=== PATIENT | female | born 1995 | race African-American/Black ===

== ENCOUNTER 2024-08-13 10:16 | Outpatient (CLI) | payer MEDICAID, SELFPAY ==
--- NOTE | ~2024-08-13 | US_ITS ---
EXAMINATION: US OB <=14 wk fetus w TV DATE: 08/13/2024 10:54 INDICATION: Evaluate viability TECHNIQUE: Real-time transabdominal and transvaginal obstetric ultrasound. FINDINGS: No prior studies for comparison. The uterus measures 9.3 x 7.8 x 7.8 cm. There is an intrauterine gestational sac, with pole awa ntified. The crown rump length measures 3.67 cm, which correlates with a estimated gestational age o f 10 weeks 4 days. heart tones are identified measuring 145 BPM. The ovaries are within ariane l limits. No evidence for subchorionic hemorrhage. IMPRESSION: 1. SL IUP with an EGA of 10 weeks, 4 days (EDC by current ultrasound of 03/07/2025). Reviewed, dictated and finalized at location B. IMPRESSION: 1. SL IUP with an EGA of 10 weeks, 4 days (EDC by current ultrasound of 03/07/20 25).
== END 2024-08-13 10:17 | disposition home or self-care (01) ==
LOC: MICIMG 10:18
PROVIDERS: PCP Student in an Organized Health Care Education/Training Program; Visit Provider Student in an Organized Health Care Education/Training Program
DX: N94.89 Other specified conditions associated with female genital organs and menstrual cycle (principal); Z3A.10 10 weeks gestation of pregnancy
CPT/HCPCS: 76801; 76817

== ENCOUNTER 2025-02-23 10:39 | Outpatient (RCR) | payer OTHER, SELFPAY ==
[2025-02-20 11:15] VITALS: BP 110/77; PULSE 108
--- NOTE | ~2025-02-23 | US_ITS ---
EXAMINATION: US OB BPP wo non-stress DATE: 02/20/2025 12:04 INDICATION: Small for gestational age during third trimester of TECHNIQUE: Real-time pelvic ultrasound was performed. The interpreting radiologist was not present fo r the study. COMPARISON: None. FINDINGS: There is a single living fetus in vertex presentation. The placenta is posterior fundal. heart rate is 125 beats per minute (bpm). Amniotic fluid volume appears subjectively normal with normal de epest vertical pocket measurement of 4.6 cm Biophysical profile performed by the technologist: breathing (30 sec sustained breathing in 30 minutes): 2 out of 2 movement (3 gross body movements in 30 minutes): 2 out of 2 tone (one episode of wkemkws-[id number]-mavmahp limb movement): 2 out of 2 Amniotic fluid pocket (2 cm): 2 out of 2 Total score: 8 out of 8 IMPRESSION: 1. Single living fetus in vertex presentation with heart rate of 125 bpm. 2. Biophysical profile 8 out of 8. Reviewed, dictated and finalized at location A.
[2025-02-23 11:34] VITALS: BP 118/76; PULSE 109
== END 2025-03-16 08:33 | disposition home or self-care (01) ==
LOC: ANHOBOP 10:39
PROVIDERS: Visit Provider Obstetrics & Gynecology
DX: O36.5990 Maternal care for other known or suspected poor fetal growth, unspecified trimester, not applicable or unspecified (principal); Z3A.37 37 weeks gestation of pregnancy; Z3A.38 38 weeks gestation of pregnancy
CPT/HCPCS: 59025; 76819

== ENCOUNTER 2025-02-26 05:30 | Inpatient (IN) | payer OTHER, SELFPAY ==
[2025-02-26] VITALS (162 sets, daily range): BP systolic 78–141; BP diastolic 34–108; PULSE 81–234; TEMP 36.3–36.9; O2SAT 93–100; BMI 25.8
--- OUTSIDE RECORDS SUMMARY | 2025-02-26 05:35 | XMS_ITS | Referral Summary ---
Author Organization [facility] Address [address] [place] [id number] Care Team Providers Care Millwright Instructor Name Role Phone No, Physician Primary Care Provider [phone] Allergies No known active allergies Medications acetaminophen (TYLENOL) 500 mg tabletIndications:P ain Take 2 tablets (1,000 mg total) by mouth every 6 (six) hours as needed for pain 60 tablet 4 Active ibuprofen (ADVIL,MOTRIN) 600 mg tabletIndications:P ain Take 1 tablet (600 mg total) by mouth every 6 (six) hours as needed for pain 30 tablet 4 Active oxyCODONE (ROXICODONE) 5 mg immediate release tabletIndications:P ain Take 1 tablet (5 mg total) by mouth every 4 (four) hours as needed for pain 10 tablet 4 Active polyethylene glycol (MIRALAX) 17 gram/dose bulk powder Take 17 g by mouth daily 289 g 4 Active ondansetron ODT (ZOFRAN-ODT) 4 mg disintegrating tabletIndications:P revention of Post-Operative Nausea and Vomiting Take 1 tablet (4 mg total) by mouth every 8 (eight) hours as needed for nausea or vomiting 20 tablet 4 Active cyclobenzaprine (FLEXERIL) 5 mg tablet Take 1 tablet (5 mg total) by mouth 3 (three) times a day as needed for muscle spasms 30 tablet 1 4 Active Active Problems Problem Noted Date Diagnosed Date Ectopic 11/30/2023 Social History Tobacco Use Types Packs/Day Years Used Date Smoking Tobacco: Never Smokeless Tobacco: Never Tobacco Cessation:Counseling Given: Not Answered AUDIT-C Answer Date Recorded Q1: How often do you have a drink containing alcohol? Never 11/30/2023 Q2: How many drinks containi ng alcohol do you have on a typical day when you are drinking? Patient does not drink Q3: How often do you have si x or more drinks on one occasion? Never 11/30/2023 Personal Safety Answer Date Recorded Have you ever been in or are you currently in a harmful physical or emotional relationship or is someone making you feel afraid or unsafe? Denies 11/30/2023 Comments No Sex and Gender Information Value Date Recorded Sex Assigned at Not on file Legal Sex Female 9:[address] FREIGHT Gender Identity Not on file Sexual Orientation Not on file Last Filed Vital Signs Vital Sign Reading Time Taken Comments Blood Pressure 100/58 12/13/2023 3:[address] ENGINEER FREIGHT Pulse 74 12/13/2023 3:[address] ENGINEER FREIGHT Temperature 37.1 C (98.7 F) 12/13/2023 3:[address] ENGINEER FREIGHT Respiratory Rate 12 11/30/2023 8:[address] ENGINEER FREIGHT Oxygen Saturation 100% 12/13/2023 3:[address] ENGINEER FREIGHT Inhaled Oxygen Concentration - - Weight 53.5 kg (117 lb 14.4 oz) 12/13/2023 3:[address] ENGINEER FREIGHT Height 144.8 cm (4' 9 ) 12/13/2023 3:[address] ENGINEER FREIGHT Body Mass Index 25.51 12/13/2023 3:[address] ENGINEER FREIGHT Plan of Treatment Not on file Care Teams Millwright Instructor Relationship Specialty Start Date End Date No, Physician PCP - General 11/30/23
--- OUTSIDE RECORDS SUMMARY | 2025-02-26 05:35 | XMS_ITS | Clinical Summary ---
Author Organization [facility] Address [address] [place] [address] Care Team Providers Care Emergency Preparedness Manager Name Role Phone Unavailable Primary Care Provider Unavailabl e Source Comments [facility],non-owned Affiliates and Associated Physician Practices is amultiple site organization consisting of ambulatory clinics and hospital sitesin [place] and [place]. This disclosure is being madepursuant to the Care Everywhere program and may not contain all information available regarding this patient. Last updated 18.[facility] Allergies No known active allergies Medications * Be aware that medications may not be up to date on this document. Alwaysverify current medications with the patient. Vit-DSS-Fe Fum-FA ( vitamin with iron) tabletIndicatio ns: Take 1 (one) tablet by mouth once daily Reasons: Active Encounters Date Type Department Care Team Description 01/12/2025 12:56 PM CDT - 01/12/2025 11:59 PM CDT Hospital Encounter [facility] [address] [place] [address] David Lee MD Discharge Disposition: Home or Self Care 12/17/2024 10:30 AM AMBULANCE MECHANIC - 12/17/2024 11:59 PM AMBULANCE MECHANIC Hospital Encounter [facility] [address] [place] [address] Mariely Caballero MD Discharge Disposition: Home or Self Care 12/01/2024 Telephone [facility] [address] [place] [address] Venita Reagan Adam Appointment (LM for pt to C/S appt) from Last 3 Months Family History Relation Name Status Comments Brother Alive Father Alive Mother Alive Sister Alive Social History Tobacco Use Types Packs/Day Years Used Date Smoking Tobacco: Never Smokeless Tobacco: Never Tobacco Cessation:Counseling Given: Not Answered Alcohol Use Standard Drinks/Week Comments Never 0 (1 standard drink = 0.6 oz pur e alcohol) Estimated Date of Delivery Comme nts Yes 03/08/2025 Based on Patient Reported Sex and Gender Information Value Date Recorded Sex Assigned at Not on file Legal Sex Female 8:51 AM CDT Gender Identity Not on file Sexual Orientation Not on file Last Filed Vital Signs Vital Sign Reading Time Taken Comments Blood Pressure 111/64 08/27/2024 1:49 PM AMBULANCE MECHANIC Pulse 87 08/27/2024 1:49 PM AMBULANCE MECHANIC Temperature - - Respiratory Rate - - Oxygen Saturation - - Inhaled Oxygen Concentration - - Weight 48.5 kg (107 lb) 08/27/2024 1:49 PM AMBULANCE MECHANIC Height 144.8 cm (4' 9 ) 08/27/2024 1:49 PM AMBULANCE MECHANIC Body Mass Index 23.15 08/27/2024 1:49 PM AMBULANCE MECHANIC Plan of Treatment Health Maintenance Due Date Last Done Comments PAP SMEAR 1993 HIV SCREENING 2008 HEPATITIS C SCREENING 07/17/2011 DTAP/TDAP/TD VACCINES (1 - Tdap) 2012 HEPATITIS B VACCINE (1 of 3 - 19+ 3-dose series) 2012 COVID-19 VACCINE (1 - 2023-2 5 season) 2024 DEPRESSION SCREENING 10/22/2024 OB-ONE HOUR GLUCOSE 11/30/2024 OB-TDAP CURRENT 12/07/2024 OB-RHOGAM INJECTION 12/14/2024 OB-GROUP B STREP SCREEN 02/01/2025 INFLUENZA VACCINE (Season Ended) 2025 ZOSTER VACCINE (1 of 2) 2043 HIB VACCINE Aged Out No longer eligi ble based on patient's age to complete this topic HPV VACCINE Aged Out No longer eligi ble based on patient's age to complete this topic MENINGOCOCCAL (Group B) VACC INE SHARED DECISION-MAKING Aged Out No longer eligibl e based on patient's age to complete this topic MENINGOCOCCAL GROUPS A/C/Y/W VACCINE Aged Out No longer eligible b ased on patient's age to complete this topic PNEUMOCOCCAL VACCINE Aged Out No long er eligible based on patient's age to complete this topic Respiratory Syncytial Virus (RSV) Vaccine Pt: or over 60 yrs (No Doses Required) Completed Procedures Procedure Name Priority Date/Time Associated Diagnosis Comments SONOGRAM - COMPLETE Routine 01/12/2025 1 2:53 PM CDT Second History of malaria 32 weeks gestation of Encounter for ultrasound to assess growth SONOGRAM - COMPLETE Routine 12/17/2024 1 0:40 AM AMBULANCE MECHANIC Second Encounter for ultrasound History of malaria 28 weeks gestation of from Last 3 Months Results * SONOGRAM - COMPLETE (01/12/2025 12:53 PM CDT) Only the most recent of2 resultswithin the time period is included. Linked Results Indication ======== Small HC on outside scan Malaria treated in [facility] 2022 G1: Ectopic LT salpingectomy Nov-2023 G2: Current , low-risk cf-DNA History ====== OB History 2. Para 0 [id number] Maternal Assessment Physical Exam Height 145 cm, 4 ft 9 in. Weight 54 kg, 120 lb. Initial weight 49 kg, 107 lb. BMI 25.97 kg/m . Initial BMI 23.15 kg/m . Weight gain 6 kg, 13 lb Method ====== Transabdominal ultrasound. View: Sufficient ========= Mittal . Number of fetuses: 1 Dating ====== Date Details Gest. age BLANQUITA LMP 06/01/2024 32 w + 1 d 03/08/2025 Stated BLANQUITA 32 w + 1 d 03/08/2025 U/S 01/12/2025 based upon AC, BPD, Femur, HC 31 w + 0 d 03/16/2025 Assigned dating based on the LMP, selected on 08/27/2024 32 w + 1 d 03/08/2025 General Evaluation Cardiac activity present. FHR 123 bpm. Presentation: cephalic Placenta: Placental site: posterior Umbilical cord: Insertion site: normal insertion Amniotic fluid: Amount of AF: normal. MVP 4.6 cm. JER 14.8 cm. Q1 4.6 cm, Q2 4.3 cm, Q3 3.6 cm, Q4 2.3 cm Biometry BPD 74.6 mm 29w 6d 2% Hadlock HC 279.4 mm 30w 4d 1% Hadlock AC 282.3 mm 32w 2d 53% Hadlock Femur 60.3 mm 31w 3d 18% Hadlock Humerus 52.9 mm 30w 6d 18% Anastasia HC / AC 0.99 Weight Calculation: EFW 1,803 g 25% Hadlock EFW (lb,oz) 4 lb 0 oz EFW by Hadlock ([id number]) appropriate Growth Overview Exam date GA BPD (mm) HC (mm) AC (mm) FL (mm) HL (mm) EFW (g) 12/17/2024 28w 3d 68.2 12% 240.3 <1% 234.8 25% 51.6 14% 46.7 19% 1088 13% 01/12/2025 32w 1d 74.6 2% 279.4 1% 282.3 53% 60.3 18% 52.9 18% 1803 25% Anatomy The following structures appear normal: Abdomen Stomach. Kidneys. Bladder. Impression ========= Single, live, intrauterine at 32w 1d size is appropriate Amniotic fluid volume: normal No major malformations were seen within the limitations of ultrasound Follow-up ======== Follow up ultrasound in 4 weeks for growth assessment Coding ====== Procedures 41208: US Preg Uterus Follow Up [facility] Hybrid [employer] PACS Anatomical Region Laterality Modality Other 01/12/2025 12:5 3 PM CDT Aiden Bolivar MD [facility] ORDERABLES Edited Result - Final from Last 3 Months Insurance
--- OUTSIDE RECORDS SUMMARY | 2025-02-26 05:35 | XMS_ITS | Clinical Summary ---
Author Organization [facility] Address [address] [place] [id number] Care Team Providers Care Can Maker Name Role Phone No, Physician Primary Care Provider [phone] Allergies No known active allergies Medications acetaminophen [...] on file Legal Sex Female 9:29 AM JAVA SOLUT[employer] ARCHITECT Gender Identity Not on file Sexual Orientation Not on file Obstetrics History Para Term AB IAB SAB Ectopic Multiple Livin g Live Births 1 Date Outcome GA Total Labor Labor/2nd/3rd Weight Sex Type Anes PTL Annie A1 A5 Name Clin Last Filed Vital Signs Vital Sign Reading Time Taken Comments Blood Pressure 100/58 12/13/2023 3:03 PM JAVA SOLUTIONS ARCHITECT Pulse 74 12/13/2023 3:03 PM JAVA SOLUTIONS ARCHITECT Temperature 37.1 C (98.7 F) 12/13/2023 3:03 PM JAVA SOLUTIONS ARCHITECT Respiratory Rate 12 11/30/2023 8:40 PM JAVA SOLUTIONS ARCHITECT Oxygen Saturation 100% 12/13/2023 3:03 PM JAVA SOLUTIONS ARCHITECT Inhaled Oxygen Concentration - - Weight 53.5 kg (117 lb 14.4 oz) 12/13/2023 3:03 PM JAVA SOLUTIONS ARCHITECT Height 144.8 cm (4' 9 ) 12/13/2023 3:03 PM JAVA SOLUTIONS ARCHITECT Body Mass Index 25.51 12/13/2023 3:03 PM JAVA SOLUTIONS ARCHITECT Plan of Treatment Health Maintenance Due Date Last Done Comments Cervical Cancer Screening 1993 Depression Screening 1993 Hepatitis C Screening 1993 DTaP/Tdap/Td Vaccine (1 - Tdap) 2004 Varicella Vaccines (1 of 2 - 13+ 2-dose series) 2006 Hepatitis B Screening 2011 Regular Well Visit/Exam 18-64 2011 Influenza Vaccine (Season Ended) 2025 HPV Vaccines Aged Out No longer eligi ble based on patient's age to complete this topic Pneumococcal vaccine <65 Aged Out No longer eligible based on patient's age to complete this topic Care Teams Can Maker Relationship Specialty Start Date End Date No, Physician PCP - General 11/30/23
[2025-02-26 06:12] LABS: Basophils Percent Auto 0.5 % (0.2-1.2); Eosinophils Absolute Auto 0.1 K/mm3 (0-0.3); Eosinophils Percent Auto 1.2 % (0-4.4); Hematocrit 38.5 % (37.0-47.0); Hemoglobin 12.7 g/dL (12.0-15.0); Immature Granulocyte Absolute 0.13 K/mm3 (0.00-0.031); Immature Granulocyte Percent A 1.5 % (0-0.5); Lymphocytes Percent Auto 31.6 % (18.3-44.2); Mean Corpuscular Hemoglobin 27.2 pg (26-34); Mean Corpuscular Volume 82.4 fl (80-100); Mean Platelet Volume 9.2 fl (7.4-10.4); Monocytes Absolute Auto 0.5 K/mm3 (0.1-0.6); Neutrophils Absolute Auto 5.1 K/mm3 (1.3-6.7); Neutrophils Percent Auto 59.2 % (45.5-73.1); Nucleated Red Blood Cells Perc 0.2 % (0.0-0.2); Platelet Count Result 350 k/mm3 (150-375); Red Blood Count 4.67 M/mm3 (4.2-5.4); White Blood Count 8.5 K/mm3 (4.5-10.0)
--- NOTE | 2025-02-26 06:18 | P.HPUP_ITS ---
History and Physical Update Update Date/Time: 02/26/25 06:18 29-year-old at 38w4d for IUGR History and Physical has been reviewed, including an updated exam of the patient. There are NO changes in the patient's condition. Risks, benefits, and alternatives have been discussed and questions answered. Patient agrees to proceed with procedure. -Malaria- 2022- [facility] recommend retest -h/o ectopic with L salpingectomy (2022) -moved from [place] in 2022 -FOB is sickle cell carrier, mom hgb A/A Admit to L&D Routine admission orders Rh positive GBS negative Continuous EFM Will plan for misoprostol induction of labor
[2025-02-26] MEDS: miSOPROStol 25 MCG TABLET 50 MCG BY MOUTH (06:40)
[2025-02-26 06:51] LABS: Syphilis IgG/IgM Antibody Negative (Negative)
[2025-02-26 07:04] LABS: HIV 1/2 Ab P24 Ag Result Negative (Negative)
[2025-02-26] MEDS: LACTATED RINGERS 1,000 ML 999 ML IV CONT ×2 (11:06→17:58)
[2025-02-26] MEDS: miSOPROStol 25 MCG TABLET VAGINAL (11:09)
[2025-02-26] MEDS: TERBUTALINE SULFATE 1 MG/ML VIAL 0.25 MG SUB-Q ×2 (15:13→20:53)
--- NOTE | 2025-02-26 21:22 | WPDANESEPP ---
Anes - Eval Pre Procedure Procedure: Labor Epidural Date/Time: 02/26/25 21:22 Surgeon: Osmel Preop Diagnosis: Labor Pain Pre Op Diagnosis: IOL Patient Data Age: 29 Gender: F Height: 1.5 m Weight: 58.1 kg Last Vital Signs Temp 36.3 C L 02/26/25 11:00 Pulse 97 02/26/25 21:00 BP 123/76 02/26/25 21:00 Pulse Ox 98 02/26/25 21:19 O2 Del Method Room Air 02/26/25 06:25 Allergies Allergy/AdvReac Type Severity Reaction Status Date / Time No Known Allergies Allergy Verified 02/24/25 09:26 Home Medications ?Medication ?Instructions ?Recorded ?Confirmed ?Type vits no.126-ferrous fum 1 tablet PO DAILY 08/11/24 02/26/25 History 28 mg iron-folic acid 800 mcg tablet (Classic ) metoclopramide HCl 5 mg tablet 5 mg PO DAILY #30 tabs 08/18/24 02/24/25 Rx (Reglan) Laboratory Tests 02/26/25 05:48 WBC 8.5 K/mm3 (4.5-10.0) RBC 4.67 M/mm3 (4.2-5.4) Hgb 12.7 g/dL (12.0-15.0) Hct 38.5 % (37.0-47.0) MCV 82.4 fl (80-100) MCH 27.2 pg (26-34) MCHC 33.0 g/dl (32-36) RDW 15.0 H % (11.5-14.5) Plt Count 350 k/mm3 (150-375) MPV 9.2 fl (7.4-10.4) Immature Gran % (Auto) 1.5 H % (0-0.5) Neut % (Auto) 59.2 % (45.5-73.1) Lymph % (Auto) 31.6 % (18.3-44.2) [place] % (Auto) 6.0 % (2.6-8.5) Eos % (Auto) 1.2 % (0-4.4) Baso % (Auto) 0.5 % (0.2-1.2) Lymph # (Auto) 2.70 K/mm3 (0.9-3.2) [place] # (Auto) 0.5 K/mm3 (0.1-0.6) Eos # (Auto) 0.1 K/mm3 (0-0.3) Baso # (Auto) 0.0 K/mm3 (0.0-0.1) Abs Immat Gran (auto) 0.13 H K/mm3 (0.00-0.031) Absolute Neuts (auto) 5.1 K/mm3 (1.3-6.7) Absolute Nucleated RBC 0.020 H K/mm3 (0.0-0.012) Nucleated RBC % 0.2 % (0.0-0.2) Syphilis IgG/IgM Ab Negative (Negative) HIV 1&2 Ab/P24 Ag 4thGn Negative (Negative) Blood Type O Positive Antibody Screen Negative : gestational age (, BLANQUITA 03/08/25) Patient hx anesthesia problems: none Family hx anesthesia problems: none Results Review: All pre-operative results and documents have been reviewed as part of the pre-operative evaluation. [facility] Past Medical History Medical History Suppression of menses Surgical History Surgical History H/O unilateral salpingectomy Family History Family History Other Patient denies significant medical history Social History Social History Smoking status: Never smoker Second hand tobacco smoke exposure: No Alcohol intake: never Substance use: never Do You Feel Safe in your Home?: Yes Lack of Transportation: No Lack of Food: Never True Current Housing: I Have Housing Concerned About Future Housing: No Difficulty Paying Gas/Electric Bills: No Difficulty Paying for Meds: No Currently Unemployed: No Education: Associate Degree Difficulty w/ Childcare or Family Care: No Living arrangements: with family Occupation/Education: unemployed Gender identity (if verbalized by the patient): Female Sexual Orientation (if Verbalized by the Patient): Straight or Heterosexual Spiritual care concerns: No Exam Day of Procedure 02/26/25 21:22 Patient weight: normal Heart: regular rate and rhythm Lungs: normal air movement Airway: Mallampati scale class II Neurological: alert and oriented
[2025-02-26] MEDS: LACTATED RINGERS 1,000 ML 125 ML IV CONT (23:43)
[2025-02-27] VITALS (294 sets, daily range): BP systolic 61–138; BP diastolic 44–120; PULSE 67–126; RESP 16–21; TEMP 36.3–37.5; O2SAT 80–100
[2025-02-27] MEDS: OXYTOCIN 30 UNITS/NS 500 ML 30 UNITS/500 ML BAG IV CONT (01:45)
--- NOTE | 2025-02-27 06:01 | PM.OBPNLAB ---
Pain Control Date/time seen: 02/27/25 06:01 Pain control: epidural Pelvic Exam Dilation (cm): 1 Effacement (%): 70 station: -3 Amniotic membrane status: Intact Contractions Monitor mode: External Contraction pattern: Regular Status status: Category ll Assessment and Plan Assessment: induction ongoing Comments: Cooks cervical balloon was placed with 40 mL of saline in each balloon.
[2025-02-27] MEDS: LACTATED RINGERS 1,000 ML 125 ML IV CONT ×2 (08:41→14:25)
[2025-02-27] MEDS: TERBUTALINE SULFATE 1 MG/ML VIAL 0.25 MG SUB-Q (16:29)
--- NOTE | 2025-02-27 18:28 | PM.OBPNLAB ---
Pain Control Date/time seen: 02/27/25 18:28 Pain control: epidural Pelvic Exam Dilation (cm): 6 Effacement (%): 80 station: 0 Amniotic membrane status: Ruptured Contractions Monitor mode: External Contraction pattern: Irregular Status status: Category ll Assessment and Plan Plan: Comments: FHTs noted to have recurrent prolonged deceleration. Pitocin was stopped. The fetus is not tolerating Pitocin augmentation or maternal repositioning. heart tones only remaining reassuring on the maternal left side with no Pitocin. Cervix remains 6 cm. Discussed plan of care with patient and father of baby. Recommended for intolerance of labor remote from delivery. Risks, benefits, alternatives reviewed at length. Discussed remote from delivery status and my concerns for tolerance of active phase of labor. Discussed the risk of terminal bradycardia, cerebral palsy, complications with prolonged stress of fetus with ongoing trial of induction of labor.
[2025-02-27] MEDS: ACETAMINOPHEN 500 MG TABLET 1000 MG PO (18:48)
[2025-02-27] MEDS: FAMOTIDINE 20 MG/2 ML VIAL IV PUSH (19:01)
[2025-02-27] MEDS: ONDANSETRON INJ 4 MG/2 ML VIAL IV PUSH (19:01)
--- NOTE | 2025-02-27 19:47 | WPDANESEPP ---
Anes - Eval Pre Procedure Procedure: Operation Date: 02/27/25 18:30 Proposed Procedures p Section - Aiden Bolivar MD Date/Time: 02/27/25 19:47 Surgeon: Osmel Preop Diagnosis: Term IUP in labor, non reassuring heart tones Pre Op Diagnosis: IOL Patient Data Age: 29 Gender: F Height: 1.5 m Weight: 58.1 kg Last Vital Signs Temp 37.5 C 02/27/25 17:41 Pulse 92 02/27/25 19:00 BP 113/76 02/27/25 19:00 Pulse Ox 100 02/27/25 19:02 O2 Del Method Room Air 02/26/25 06:25 Allergies Allergy/AdvReac Type Severity Reaction Status Date / Time No Known Allergies Allergy Verified 02/24/25 09:26 Home Medications ?Medication ?Instructions ?Recorded ?Confirmed ?Type vits no.126-ferrous fum 1 tablet PO DAILY 08/11/24 02/26/25 History 28 mg iron-folic acid 800 mcg tablet (Classic ) metoclopramide HCl 5 mg tablet 5 mg PO DAILY #30 tabs 08/18/24 02/24/25 Rx (Reglan) : gestational age (, BLANQUITA 03/08/25) Patient hx anesthesia problems: none Family hx anesthesia problems: none Results Review: All pre-operative results and documents have been reviewed as part of the pre-operative evaluation. [facility] Past Medical History Medical History Suppression of menses Surgical History Surgical History H/O unilateral salpingectomy Family History Family History Other Patient denies significant medical history Social History Social History Smoking status: Never smoker Second hand tobacco smoke exposure: No Alcohol intake: never Substance use: never Do You Feel Safe in your Home?: Yes Lack of Transportation: No Lack of Food: Never True Current Housing: I Have Housing Concerned About Future Housing: No Difficulty Paying Gas/Electric Bills: No Difficulty Paying for Meds: No Currently Unemployed: No Education: Associate Degree Difficulty w/ Childcare or Family Care: No Living arrangements: with family Occupation/Education: unemployed Gender identity (if verbalized by the patient): Female Sexual Orientation (if Verbalized by the Patient): Straight or Heterosexual Spiritual care concerns: No Comments Pt taken to OR 1 for C section due to non reassuring heart tones, Epidural in situ and functioning well. Plan to use epidural for C section. PF Morphine for Post op Pain control. Pt verbalized understanding Exam Day of Procedure 02/27/25 19:47 Patient weight: normal Heart: regular rate and rhythm Lungs: normal air movement Airway: Mallampati scale class II Neurological: alert and oriented
--- NOTE | 2025-02-27 19:58 | W.PM.OBCSD ---
OB - Delivery Note Procedure Delivery date: 02/27/25 Pre-op diagnosis: Intrauterine Growth Restriction (IUGR) and Non-Reassuring Status Post-op Diagnosis: Same Induction method: Per Cervidil Protocol Delivery augmentation: Pitocin Delivery monitor: External FHT and Internal Uterine Prior to decision for section, [facility] labor guidelines were considered and discussed with the patient and staff. Decision made to proceed with the section.: Yes Procedure Performed: Primary Primary branch: low cervical, transverse Surgeon: Aiden Bolivar MD Anesthesia type: Epidural Description of Procedure/Findings: The patient was taken to the operating room. Epidural anesthesia was administered and found to be adequate at a t-10 level. The patient was placed in a supine position with a slight left lateral tilt. A mukherjee catheter was placed with return of clear urine. A Bovie grounding pad was placed. Surgical prep was performed and surgical drapes were placed. A surgical time out was performed. A Pfannenstiel skin incision was then made with the scalpel and carried through to the underlying layer of fascia. The fascia was then incised in the midline and the incision was extended laterally with the Oneill scissors. The superior aspect of the fascia was then grasped with the Teresita clamps, elevated, and the underlying rectus muscles dissected off bluntly and sharply. Attention was then turned to the inferior aspect of this incision which, in a similar fashion, was grasped, tented up with the Teresita clamps, and the rectus muscles dissected off both bluntly and sharply. The rectus muscles were then in the midline. The peritoneum was identified and entered bluntly. The peritoneal incision was then extended superiorly and inferiorly with good visualization of the bladder. The bladder blade was reinserted. The uterus was inspected for rotation. A low-transverse uterine incision was made sharply with the scalpel and entry was made into the uterine cavity. An amniotomy was made and copious amounts of clear fluid were noted on return. The uterine incision was extended laterally bluntly. The bladder blade was removed and the fetus was delivered atraumatically. The nose and mouth were suctioned with a bulb syringe. The umbilical cord was clamped twice and cut. The was handed off to the waiting staff. At the time of the delivery, the had good color, tone and grimace. The cried with minimal stimulation. A second segment of umbilical cord was clamped and cut for cord blood gasses. Cord blood was collected for determination of the blood type and for direct Tang. The placenta was delivered spontaneously without difficulty. The placenta appeared grossly normal and complete. The uterus was exteriorized and cleared of all clots and debris. The uterine incision was repaired using 0-monocryl suture in a running fashion. A second layer of 0 Monocryl suture was used in an imbricating fashion to obtain excellent hemostasis and uterine strength. The uterine closure was inspected for hemostasis. The posterior aspect of the uterus and the broad ligaments were inspected and the posterior cul-de-sac cleared of fluid and blood clots. The uterine closure was again inspected and found to be hemostatic. The uterus was returned to the abdominal cavity. The pericolic gutters were inspected and were cleared of all blood clots and debris. The uterine closure was then re inspected and surgicell powder was applied to ensure hemostasis as were all subfascial tissues. The peritoneum was closed using 3-0 vicryl in a running fashion. The fascia was reapproximated with 0-vicryl in a running fashion. The subcutaneous tissue was irrigated and hemostasis achieved with electrocautery. The skin was closed with 4-0 vicryl in a subcuticular fashion. A sterile dressing was applied to the wound. The patient tolerated the procedure well. Sponge, lap and needle counts were correct times three. The patient was taken to recovery in stable condition and without anticipated complications. Specimen: Yes (placenta) Estimated Blood Loss: 600 Urine Output: 500 Drains: No Packing: No Pathology: Yes (placenta) Complications: No immediate complications Condition: Stable Disposition: Floor Baby Date of : 02/27/25 Time of : 19:26 Gestational Age by Date: 38 gender: Male Weight (pounds): 5 Weight (ounces): 8 presentation: vertex Placenta delivery description: Manual Removal Cord Vessel Description: 3 Vessels and Nuchal Cord score one minute: 8 score five minutes: 8
[2025-02-27] MEDS: OXYTOCIN 30 UNITS/NS 500 ML 30 UNITS/500 ML BAG 125 UNITS IV CONT (20:40)
[2025-02-27] MEDS: MORPHINE SULFATE INJ (*CRX) 10 MG/ML AMP 2 MG IV PUSH ×3 (21:52→22:34)
--- NOTE | 2025-02-27 22:49 | OBPPTRN ---
Patient transferred to post room #281 via stretcher. Support person present. Oriented to unit, room, information board, rooming in, admission packet and security measures. Patient verbalizes understanding.
--- NOTE | 2025-02-27 23:06 | PC.NURSE ---
2219 report given. 2245 pt transferred to pp with dad, baby, and family no issues with transfer. Pt transferred from stretcher to bed, SCD bilat applied on, PIT running, gown changed, pt cleaned. NO questions/concerns from pt
[2025-02-27] MEDS: ACETAMINOPHEN 325 MG TABLET 650 MG PO (23:10)
[2025-02-27] MEDS: KETOROLAC 15 MG/ML VIAL (*BKC) IV PUSH (23:10)
[2025-02-28] MEDS: DEXTROSE 5%/0.45% SOD CHL 1,000 ML 125 ML IV CONT (02:25)
[2025-02-28 04:50] VITALS: BP 128/89; PULSE 75; RESP 18; TEMP 36.8; O2SAT 98
[2025-02-28] MEDS: ACETAMINOPHEN 325 MG TABLET 650 MG PO ×4 (05:15→23:05)
[2025-02-28] MEDS: KETOROLAC 15 MG/ML VIAL (*BKC) IV PUSH ×3 (05:15→17:31)
[2025-02-28 05:48] LABS: Basophils Percent Auto 0.2 % (0.2-1.2); Hematocrit 29.4 % (37.0-47.0); Hemoglobin 9.4 g/dL (12.0-15.0); Immature Granulocyte Absolute 0.06 K/mm3 (0.00-0.031); Immature Granulocyte Percent A 0.5 % (0-0.5); Lymphocytes Absolute Auto 1.56 K/mm3 (0.9-3.2); Lymphocytes Percent Auto 13.5 % (18.3-44.2); Mean Corpuscular Hemoglobin 27.1 pg (26-34); Mean Corpuscular Volume 84.7 fl (80-100); Mean Platelet Volume 9.7 fl (7.4-10.4); Monocytes Absolute Auto 0.7 K/mm3 (0.1-0.6); Monocytes Percent Auto 5.8 % (2.6-8.5); Neutrophils Absolute Auto 9.3 K/mm3 (1.3-6.7); Platelet Count Result 245 k/mm3 (150-375); Red Blood Count 3.47 M/mm3 (4.2-5.4); Red Cell Distribution Width 15.2 % (11.5-14.5); White Blood Count 11.6 K/mm3 (4.5-10.0)
[2025-02-28] MEDS: SIMETHICONE 80 MG TAB.CHEW PO ×3 (07:39→17:31)
[2025-02-28] MEDS: DOCUSATE SODIUM 100 MG CAPSULE PO ×2 (07:39→17:31)
[2025-02-28] MEDS: MULTIVIT/MIN/PREN/FOL AC/IRON TABLET 1 TAB PO (07:39)
[2025-02-28] MEDS: POLYSACCHARIDE IRON COMPLEX 150 MG CAPSULE PO ×2 (07:39→17:31)
--- NOTE | 2025-02-28 08:31 | P.PNOB_ITS ---
OB - PN: Subj Subjective Date/time seen: 02/28/25 08:31 Narrative: POD#1 Rupesh reports doing ok today. 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 Her pain is controlled when taking the meds. She is tolerating regular diet, voiding, and has ambulated to the bathroom; has not passed flatus. She denies any issues with her incision. She is breast feeding. OB - PN: Obj Data Labs 02/28/25 04:20 Labs: Laboratory Results - last 24 hr 02/28/25 04:20 WBC 11.6 H RBC 3.47 L Hgb 9.4 L D Hct 29.4 L MCV 84.7 MCH 27.1 MCHC 32.0 RDW 15.2 H Plt Count 245 MPV 9.7 Immature Gran % (Auto) 0.5 Neut % (Auto) 80.0 H Lymph % (Auto) 13.5 L Bowman % (Auto) 5.8 Eos % (Auto) 0.0 Baso % (Auto) 0.2 Lymph # (Auto) 1.56 Bowman # (Auto) 0.7 H Eos # (Auto) 0.0 Baso # (Auto) 0.0 Abs Immat Gran (auto) 0.06 H Absolute Neuts (auto) 9.3 H Absolute Nucleated RBC 0.000 Nucleated RBC % 0.0 OB - PN A/P Assessment and Plan (1) S/P primary low transverse : Code(s): Z98.891 - History of uterine scar from previous surgery Status: Acute Plan day: 1 Plan: routine care Comments: - PO pain meds - Regular diet - Venofer 400mg IV once - Ambulation and hydration encouraged - Continue putting baby to breast q2-3hr Time Spent With Patient Time: Total time spent is greater than 50% in coordination of care (as documented) at patient's floor/unit and/or counseling patient: Review of Systems 2 Constitutional: Constitutional: Denies chills, Denies fever(s) and Denies headache(s) Eyes: Eyes: Denies change in vision ENT: Denies dizziness and Denies headache(s) Cardiovascular: Cardiovascular: Denies chest pain, Denies palpitations and Denies dyspnea Respiratory: Respiratory: Denies cough and Denies dyspnea Gastrointestinal: Gastrointestinal: Denies nausea and Denies vomiting Genitourinary: Comments: normal bleeding Neurologic: Denies dizziness and Denies headache(s) Endocrine: Endocrine: Denies palpitations Exam 2 Const: General: cooperative, healthy appearing, comfortable and no acute distress Orientation/consciousness: patient oriented x3 Resp: Effort & Inspection: normal respiratory effort Auscultation: clear to auscultation bilaterally Cardio: Rate: regular rate GI: Inspection: non-distended and incision (covered with clean dressing) GI Palp: Yes abdominal tenderness (appropriate) and Yes Soft to palpation A uscultation: normal bowel sounds : Other: fundus firm Skin: General skin exam: normal color Neuro: General: patient oriented x3 Extrem: General: normal to inspection Psych: Appearance: grossly normal Affect: normal affect Attitude: c ooperative
[2025-02-28 08:51] VITALS: BP 105/74; PULSE 93; RESP 18; TEMP 37; O2SAT 98
[2025-02-28] MEDS: HYDROcodone/acetaminophen (*CRX) 10-325 MG TABLET 1 TAB PO (10:24)
--- NOTE | 2025-02-28 11:11 | WPDANLDPN2 ---
Anes-Prog Note L&D Date/Time: 02/28/25 11:11 Comfortable throughout: labor, delivery and section Neuraxial method: epidural Epidural/Spinal procedure site: clean & non-tender Neuro status: Neuro function grossly intact. Cardiovascular status: normal Respiratory status: normal Airway patency: baseline Mental status: baseline Post-Op hydration status: normal Vital Signs: Last Vital Signs Temp 37.0 C 02/28/25 08:51 Pulse 93 02/28/25 08:51 Resp 18 02/28/25 08:51 BP 105/74 02/28/25 08:51 Pulse Ox 98 02/28/25 08:51 O2 Del Method Room Air 02/27/25 23:10 Pain score (VAS): 1 I/O: Intake & Output 02/27/25 02/28/25 02/28/25 23:59 07:59 15:59 Intake Total 350 Output Total 775 500 Balance -775 -150 Post-procedural complaints: none Patient feedback: Patient satisfied with anesthetic care.
--- NOTE | 2025-02-28 11:11 | WPDANLDNPN2 ---
Anes-Prog Note L&D-Neuraxial Date/Time: 02/28/25 11:11 Neuraxial medications: epidural PF morphine Opiod-related complaints: none Patient feedback: Patient satisfied with post-operative pain management.
[2025-02-28] MEDS: IRON SUCROSE COMPLEX 400 MG in SODIUM CHLORIDE 0.9% IV 250 ML 108 MG IVPB (12:53)
[2025-02-28 15:45] VITALS: BP 99/58; PULSE 101; RESP 19; TEMP 36.9; O2SAT 98
[2025-02-28 20:25] VITALS: BP 112/68; PULSE 104; RESP 18; TEMP 36.6
[2025-02-28] MEDS: IBUPROFEN 600 MG TABLET PO (23:05)
[2025-03-01] MEDS: ACETAMINOPHEN 325 MG TABLET 650 MG PO ×3 (05:10→18:26)
[2025-03-01] MEDS: IBUPROFEN 600 MG TABLET PO ×3 (05:10→18:26)
[2025-03-01 07:45] VITALS: BP 99/71; PULSE 88; RESP 18; TEMP 36.6; O2SAT 100
[2025-03-01] MEDS: MULTIVIT/MIN/PREN/FOL AC/IRON TABLET 1 TAB PO (07:57)
[2025-03-01] MEDS: SIMETHICONE 80 MG TAB.CHEW PO ×3 (07:57→18:25)
[2025-03-01] MEDS: DOCUSATE SODIUM 100 MG CAPSULE PO ×2 (07:57→18:26)
[2025-03-01] MEDS: POLYSACCHARIDE IRON COMPLEX 150 MG CAPSULE PO ×2 (07:57→18:26)
[2025-03-01] MEDS: LIDOCAINE 5% PATCH 1 PATCH TRANSDERM (07:59)
--- NOTE | 2025-03-01 08:41 | P.PNOB_ITS ---
OB - PN: Subj Subjective Date/time seen: 03/01/25 08:41 Interval history: Patient doing well this AM. Has ambulated from bed but a limited amount. She is tolerating. She reports adequate pain control. Her bleeding is normal and she reports normal lochia. She denies fever, chills, N/V. She has not yet passed flatus. Patient comments: no complaints and pain well controlled; no flatus present OB - PN: Obj Data Labs 02/28/25 04:20 OB - PN A/P Plan day: 3 Plan: routine care Comments: patient doing well this AM encouraged ambulation, SCDs while in bed VSS continue routine PP care plan for circumcision today Time Spent With Patient Time: Total time spent is greater than 50% in coordination of care (as documented) at patient's floor/unit and/or counseling patient: Time with patient: less than 15 minutes Review of Systems 2 Constitutional: Constitutional: Reports no additional constitutional complaints Cardiovascular: Cardiovascular: Reports no additional cardiovascular complaints Respiratory: Respiratory: Reports no additional respiratory complaints Gastrointestinal: Gastrointestinal: Reports no additional gastrointestinal complaints Genitourinary: Genitourinary: Reports no additional female genitourinary complaints Exam 2 Const: General: comfortable and no acute distress Resp: Effort & Inspection: normal respiratory effort Auscultation: clear to auscultation bilaterally Cardio: Rate: regular rate GI: GI Palp: Yes Soft to palpation and Yes Tenderness to palpation present (GI) (appropriately tender around incision ) Auscultation: normal bowel sounds Other: fundus firm and below umbilicus Incision C/D/I Urinary Catheter: Urinary Catheter: urine clear Psych: Appearance: grossly normal Mental Status: mental status grossly normal Affect: normal affect
[2025-03-01 20:00] VITALS: BP 125/85; PULSE 72; RESP 18; TEMP 37.1; O2SAT 100
[2025-03-02] MEDS: ACETAMINOPHEN 325 MG TABLET 650 MG PO ×2 (00:26→07:13)
[2025-03-02] MEDS: IBUPROFEN 600 MG TABLET PO ×2 (00:26→07:13)
[2025-03-02] MEDS: SIMETHICONE 80 MG TAB.CHEW PO (07:13)
[2025-03-02] MEDS: POLYSACCHARIDE IRON COMPLEX 150 MG CAPSULE PO (07:13)
[2025-03-02] MEDS: DOCUSATE SODIUM 100 MG CAPSULE PO (07:13)
[2025-03-02] MEDS: MULTIVIT/MIN/PREN/FOL AC/IRON TABLET 1 TAB PO (07:13)
[2025-03-02 07:30] VITALS: BP 110/74; PULSE 82; RESP 18; TEMP 37.2; O2SAT 98
--- NOTE | 2025-03-02 07:46 | PM.OBDSVD ---
DS: Admitting Diagnosis Discharge Date 03/02/25 Admitting Diagnosis intrauterine at term IUGR DS: Discharge Diagnosis Discharge Diagnosis (1) S/P primary low transverse : Code(s): Z98.891 - History of uterine scar from previous surgery Status: Acute OB - DS: Summary Hospital Course Hospital Course: 29-year-old 010 who presented at 38 weeks for induction of labor for IUGR. Patient progressed to 6 cm. heart tones were noted to have recurrent decelerations. Patient underwent primary for intolerance of labor. course was uncomplicated. OB Procedures : None OB Procedures Intrapartum: OB Procedures: : None Peripartum Data Infant Delivery Method: Section Procedures: Procedures Operation Date: 02/27/25 18:30 Actual Procedure Side Surgeon p Section Not Applicable Aiden Bolivar MD complications: none Status at Discharge Functional status at discharge: independent ambulation Overall status at discharge: patient is progressing back to baseline Time Spent with Patient Time attestation: Total time spent providing and/or coordinating discharge services: Time spent: Less than 30 minutes Exam Const: General: comfortable and no acute distress Resp: Effort & Inspection: normal respiratory effort Auscultation: clear to auscultation bilaterally Cardio: Rate: regular rate GI: Inspection: non-distended GI Palp: Yes Soft to palpation, No Firmness to palpation present (GI), Yes Tenderness to palpation present (GI) (mild tenderness over incision ) and No Guarding due to palpation present (GI) Auscultation: normal bowel sounds Psych: Appearance: grossly normal Mental Status: mental status grossly normal Discharge Plan Discharge Discharging Clinician: Aiden Bolivar Patient Disposition: Home Activity: as tolerated and pelvic rest Diet: regular Patient Instructions: Antibiotic Form, (DC) Patient Language: Micronesian Stand Alone Forms: General Discharge Information Follow-up/Referrals: Aiden Bolivar MD [Physician] - 4 Weeks Discharge Medications: New oxycodone-acetaminophen 5-325 mg tablet 1 tablet PO Q6H PRN (Reason: pain) Qty: 28 0RF docusate sodium 100 mg Capsule 100 mg PO BID Qty: 30 0RF ibuprofen 600 mg tablet 600 mg PO Q6H PRN (Reason: pain) Qty: 30 0RF No Action Classic 28 mg iron- 800 mcg tablet 1 tablet PO DAILY metoclopramide HCl [Reglan] 5 mg tablet 5 mg PO DAILY Qty: 30 1RF Date of admission: 02/26/25 05:30 Primary Care Provider: UNKNOWN,DOCTOR Admitting Provider: Aiden Bolivar Attending physician on admission: Aiden Bolivar Condition: Stable
--- NOTE | 2025-03-03 12:39 | PM.IMHP ---
H&P: HPI History of Present Illness Date/Time: 03/03/25 12:39 Chief Complaint: IUGR intrauterine at term Narrative: 29-year-old at 38w4d for IUGR Review of Systems Cardiovascular: Cardiovascular: Denies chest pain, Denies leg edema, Denies palpitations, Denies dyspnea and Denies dyspnea on exertion Respiratory: Respiratory: Denies cough, Denies dyspnea and Denies dyspnea on exertion Gastrointestinal: Gastrointestinal: Denies abdominal pain, Denies constipation, Denies diarrhea, Denies nausea and Denies vomiting Genitourinary: Genitourinary: Denies hematuria, Denies urinary frequency, Denies dysuria, Denies pelvic pain, Denies urinary incontinence and Denies vaginal discharge Neurologic: Reports system reviewed and no additional complaints, except as documented Psychiatric: Psychiatric: Reports no additional psychiatric complaints Endocrine: Endocrine: Denies palpitations PMFSH Past Medical History Medical History Suppression of menses Surgical History Surgical History H/O unilateral salpingectomy Family History Family History Other Patient denies significant medical history Social History Social History Smoking status: Never smoker Second hand tobacco smoke exposure: No Alcohol intake: never Substance use: never Do You Feel Safe in your Home?: Yes Lack of Transportation: No Lack of Food: Never True Current Housing: I Have Housing Concerned About Future Housing: No Difficulty Paying Gas/Electric Bills: No Difficulty Paying for Meds: No Currently Unemployed: No Education: Associate Degree Difficulty w/ Childcare or Family Care: No Living arrangements: with family Occupation/Education: unemployed Gender identity (if verbalized by the patient): Female Sexual Orientation (if Verbalized by the Patient): Straight or Heterosexual Spiritual care concerns: No Meds Home Medications and Allergies Home Medications ?Medication ?Instructions ?Recorded ?Confirmed ?Type vits no.126-ferrous fum 1 tablet PO DAILY 08/11/24 02/26/25 History 28 mg iron-folic acid 800 mcg tablet (Classic ) docusate sodium 100 mg capsule 100 mg PO BID #30 caps 03/02/25 Rx ibuprofen 600 mg tablet 600 mg PO Q6H PRN pain #30 tabs 03/02/25 Rx oxycodone-acetaminophen 5 mg-325 1 tablet PO Q6H PRN pain #28 tabs 03/02/25 Rx mg tablet Allergies Allergy/AdvReac Type Severity Reaction Status Date / Time No Known Allergies Allergy Verified 02/24/25 09:26 Exam Const: General: no acute distress Eyes: EOM: EOMs intact bilaterally Neck: Neck: supple Thyroid: thyroid normal Chest: Breast/axilla inspection: normal inspection of the breasts Breast/axilla palpation: normal palpation of the breasts, normal palpation of the axillae and no axillary lymphadenopathy Resp: Effort & Inspection: normal respiratory effort Auscultation: clear to auscultation bilaterally Cardio: Rate: regular rate Rhythm: regular rhythm GI: Inspection: non-distended and other (Gravid) GI Palp: Yes Soft to palpation, No Tenderness to palpation present (GI) and No Guarding due to palpation present (GI) Auscultation: normal bowel sounds : Speculum Exam - Vagina: No vaginal bleeding OB/external & speculum: external exam normal; No vaginal bleeding Skin: General skin exam: normal color and no rashes or lesions noted Neuro: Cognition (Neuro): normal cognition Speech: normal speech Extrem: General: normal to inspection Psych: Mental Status: mental status grossly normal Affect: normal affect Assessment and Plan Assessment and plan (1) : Code(s): Z34.90 - Encounter for supervision of normal , unspecified, unspecified trimester Status: Acute (2) Intrauterine growth restriction (IUGR) affecting care of mother, third trimester, single gestation: Code(s): O36.5930 - Maternal care for other known or suspected poor growth, third trimester, not applicable or unspecified Status: Acute Assessment and Plan: 29-year-old at 38w4d for IUGR IOL progressed to 6 cm FHT were non-reassuring unable to administer pitocin due to intolerance decision was made to proceed with primary for intolerance of labor remote from delivery
[2025-03-04 12:00] VITALS: BP 112/74; PULSE 82; RESP 18; TEMP 36.6; O2SAT 100
== END 2025-03-02 10:03 | disposition home or self-care (01) | DRG 540 ==
LOC: ANHLDR 05:33 → ANHOB2 02-28 01:10
PROVIDERS: Admitting Provider Student in an Organized Health Care Education/Training Program; Visit Provider Student in an Organized Health Care Education/Training Program
PROC: (CPT 59514; principal; 2025-02-27 18:30)
DX: O36.5930 Maternal care for other known or suspected poor fetal growth, third trimester, not applicable or unspecified (principal); O76 Abnormality in fetal heart rate and rhythm complicating labor and delivery; O69.81X0 Labor and delivery complicated by cord around neck, without compression, not applicable or unspecified; Z3A.38 38 weeks gestation of pregnancy; Z37.0 Single live birth
CPT/HCPCS: 36415; 85025; 86593; 86703; 86850; 86900; 86901; A9270; G0432; J1756; J1885; J2004; J2270; J2274; J2371; J2405; J2590; J2795; J3105; J7050; J7120